=== PATIENT | female | born 1945 | race Caucasian/White ===

== ENCOUNTER → 2016-09-13 | Outpatient (CLI) | payer OTHER ==
--- NOTE | 2016-09-08 12:18 | MH ---
cc: SRAVANTHI DECKER DATE OF ADMISSION: 09/13/2016 ADMISSION DIAGNOSIS Cloudy posterior capsule right eye. HISTORY OF PRESENT ILLNESS This 70-year-old white female is coming through [facility] for the purpose of a YAG laser posterior capsulotomy of the right eye. She is status post cataract surgery with intraocular lens implant on the right eye in September of 2014 and has done well postoperatively but now notices decreasing acuity interfering with her daily activities and elected to have a YAG laser posterior capsulotomy of the right eye at this time. PAST MEDICAL HISTORY The patient has a history of - 1. Fibromyalgia. 2. Hypertension. 3. Diabetes. 4. Stress. 5. Cholesterol problems. PAST SURGICAL HISTORY 1. Hysterectomy. 2. Gallbladder surgery. 3. Cataract surgery on the right eye noted previously. DAILY MEDICATIONS 1. Zolpidem p.r.n. 2. Simvastatin. 3. Alprazolam. 4. Hydrochlorothiazide three times a week. 5. Clonidine. 6. Estradiol. 7. Losartan. 8. Sertraline. 9. Vitamin D. 10. Cranberry. 11. Multivitamins. ALLERGIES DEMEROL. CIPRO. CODEINE. IBRAHIMA INHIBITORS. SOCIAL HISTORY Noncontributory. FAMILY HISTORY Positive for mother with cataract, paternal grandmother and cousin with glaucoma. REVIEW OF SYSTEMS Noncontributory. PHYSICAL EXAMINATION On ocular exam the patient's best corrected visual acuity in room light is 20/50 +2 in the right eye and 20/30 -1 in the left. Visual dorado are full to confrontation testing. Extraocular muscle exam reveals full versions with orthophoria at distance and near. Pupils are 2 mm equal, round, and reactive to light without afferent defect. Anterior segment examination reveals a posterior chamber intraocular lens in place in the right eye with a cloudy posterior capsule. There are nuclear sclerotic cataract changes noted in the left eye. Intraocular pressure is 23 in the right eye and 24 in the left by applanation tonometry. Dilated fundus exam revealed sharp disks with cup-to-disk ratio of 0.3 bilaterally. There is occasional drusen in the macula of each eye. The background is within normal limits. IMPRESSION 1. Cloudy posterior capsule right eye. 2. Pseudophakia right eye. 3. Cataract left eye. 4. Mild macular degeneration both eyes. 5. Glaucoma suspect, low-risk due to ocular hypertension. PLAN YAG laser posterior capsulotomy of the right eye through [facility]. MD JERILYN Jennings/SSB /12:06 PM /12:13 PM
[~2016-09-13] MED LIST: AMLO2.5T PO; ASPI-130 PO; CHOL50006 PO; CLON.1 PO; ESTR0.5T9 PO; FLUOROMETHOLONE 0.25% OPHT SUSP 5 ML BTL ONE; HYDR12.56 PO; K-TA10TA5 PO; LOSA100T PO; PHENYLEPHRINE HCL 2.5% OPTH SOLN 2 ML BTL ONE; PROPARACAINE HCL 0.5% OPHT SOLN 15 ML BTL ONE; SERT-129 PO; SIMV20 PO; TROPICAMIDE 1% OPHT SOLN 15 ML BTL ONE; TUMS500C PO; XANA0.5T PO; ZOLP10TA3 PO
--- NOTE | 2016-09-13 12:55 | MP ---
cc: SRAVANTHI DECKER DATE OF SURGERY September 13, 2016 PREOPERATIVE DIAGNOSIS: Cloudy posterior capsule right eye. POSTOPERATIVE DIAGNOSIS: Cloudy posterior capsule right eye. OPERATION: YAG laser posterior capsulotomy, right eye. SURGEON: Sravanthi Decker MD ANESTHESIA: Topical. COMPLICATIONS: None. INDICATIONS: See history and physical previously dictated. PROCEDURE: The patient arrived at [facility]. Blood pressure was 156/81, pulse 69, respirations 16. A drop of Alphagan P and Mydriacyl were instilled in the right eye. The patient was seated at the YAG laser. A drop of Alcaine was instilled in the right eye and a YAG laser posterior capsulotomy lens was placed on the anterior surface of the right cornea. YAG laser posterior capsulotomy was carried out utilizing 29 exposures of 1.7 millijoules. An adequate opening was seen following the procedure. A drop of Alphagan P was instilled topically. The patient was given a prescription for a topical steroid to be used four times per day and has an appointment for follow up on the first postoperative day in my office. The patient left the [facility] in satisfactory condition. share YAG procedures performed on the right eye blood pressure 156/81, pulse 69, respirations 16, number of exposures of the YAG laser was 29 in the [place] 1.7 millijoules NAD present for the first the patient the next patient also on September 13 and also share a YAG procedure. The daughterJocelyn sites per a glass NS 80 international units to the ER. G The ER and LENCHO His Dotty visit number is [id number] systems share a YAG procedure is also on the right eye and the blood pressure is 144/50, pulse 67, respirations 16, number of exposures is 150 and the power is 1.7 millijoules and that is it for the share YAG procedures on September 13 the last procedure is the share LP eye. SUMMARY That to share, ALT eyes. SUMMARY And that is also on September 13 on patient. Sheath in the last and TO and the first in the the medial are a H and and September at the visit number is [id number]. This is the share CT PELVIS Eye. SUMMARY And it is on the right eye blood pressure 149/73, pulse 46, respirations 16, now the first phase argon laser number of exposures was 25 and that is 400 milliwatts of power 200 micron spot size 0.2 seconds exposure time argon laser number of exposures was 112 and a 950 milliwatts of power of 50 micron spot size 0.1 seconds exposure times YAG laser number of exposures of [address] CHEST Area completing the hospital operative SUMMARY The patient separation seen AGA TO an for the share LP eye. SUMMARY On the right eye [facility] in that she had initial three of my laser summaries today INDICATIONS June MD JERILYN Jennings/AISSATOU /11:31 AM /12:50 PM .1
== END ==
LOC: PHSDC 09:39
PROVIDERS: ATTEND Ophthalmology
DX: H26.491 Other secondary cataract, right eye (principal); E11.36 Type 2 diabetes mellitus with diabetic cataract; M79.7 Fibromyalgia; I10 Essential (primary) hypertension